=== PATIENT | male | born 1995 | race Caucasian/White ===

== ENCOUNTER 2019-02-18 00:09 | Emergency (ER) | payer SELFPAY ==
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
[2019-02-18 01:11] VITALS: BP 130/91; TEMP 98.9; O2SAT 97
== END 2019-02-18 01:11 ==
LOC: ER 00:09
DX: Z02.89 Encounter for other administrative examinations (principal); R07.81 Pleurodynia; M25.541 Pain in joints of right hand; M25.511 Pain in right shoulder; F10.129 Alcohol abuse with intoxication, unspecified; F32.9 Major depressive disorder, single episode, unspecified; Y04.0XXA Assault by unarmed brawl or fight, initial encounter; Y92.9 Unspecified place or not applicable